=== PATIENT | female | born 1970 | race Caucasian/White ===

== ENCOUNTER 2019-09-15 23:21 | Inpatient (IN) | payer MEDICARE, OTHER ==
[~2019-09-15] VITALS: Ht 167.6 cm; Wt 131.1 kg
--- NOTE | 2019-09-15 23:21 | NUR ---
BIB EMS C/O BIZARRE BEHAVIOR. VERBALLY ABUSIVE, REFUSING TO ANSWER QUESTION, pt to bed 12, placed pt on monitor, -sob, pending md amaya
[2019-09-15] MEDS ORDERED: OLANZAPINE 5 MG TABLET PO ONE (23:30)
[2019-09-15] MEDS ORDERED: OLANZAPINE 10 MG VIAL IM ONE (23:34)
[2019-09-15] MEDS ORDERED: OLANZAPINE 5 MG TABLET ONE (23:39)
[2019-09-15 23:45] LABS: BASOPHILS % (AUTO) 0.4 % (0.0-2.0); EOSINOPHILS % (AUTO) 3.2 % (0.0-6.0); HEMATOCRIT 36 % (33-45); HEMOGLOBIN 11.6 g/dL (11.5-14.8); LYMPHOCYTES # (AUTO) 1.9 /CMM (0.8-4.8); LYMPHOCYTES % (AUTO) 29.5 % (20.0-44.0); MEAN CORPUSCULAR HGB CONC 33 g/dl (31.0-36.0); MEAN CORPUSCULAR VOLUME 90 fL (82-100); MONOCYTES # (AUTO) 0.5 /CMM (0.1-1.30); MONOCYTES % (AUTO) 7.3 % (2.0-12.0); NEUTROPHILS # (AUTO) 3.9 /CMM (1.8-8.9); NEUTROPHILS % (AUTO) 59.6 % (43.0-81.0); PLATELET COUNT (AUTO) 232 /CMM (150-450); RED BLOOD CELL COUNT(AUTO) 3.95 MIL/uL (4.0-5.2); WHITE BLOOD COUNT (AUTO) 6.5 K/uL (4.3-11.0)
[2019-09-15 23:51] LABS: CALCIUM, SERUM 8.6 mg/dL (8.5-10.1); CARBON DIOXIDE 34 mmol/L (21-32); CHLORIDE 107 mmol/L (98-107); CREATININE 0.7 mg/dL (0.6-1.3); GLUCOSE 139 mg/dL (74-106); POTASSIUM 4.3 mmol/L (3.5-5.1); SODIUM SERUM 145 mmol/L (136-145); UREA NITROGEN, BLOOD 17 mg/dL (7-18)
[2019-09-15 23:58] LABS: ACETAMINOPHEN < 2 ug/ml (10-30); ALANINE AMINOTRANSFERASE 18 U/L (12-78); ALBUMIN 3.4 g/dL (3.4-5.0); ALCOHOL, BLOOD < 3 mg/dL (0-0); ALKALINE PHOSPHATASE 73 U/L (46-116); ASPARTATE AMINOTRANSFERASE 11 U/L (15-37); BILIRUBIN,DIRECT 0.1 mg/dL (0.0-0.2); BILIRUBIN,TOTAL 0.4 mg/dL (0.2-1.0); SALICYLATE 1.5 mg/dL (2.8-20.0); TOTAL PROTEIN, SERUM 7.2 g/dL (6.4-8.2)
[2019-09-16] MEDS ORDERED: OLANZAPINE 10 MG VIAL IM ONE
--- NOTE | 2019-09-16 01:03 | NUR ---
Patient is resting comfortably in bed with eyes closed. Easily aroused. VSS
--- NOTE | 2019-09-16 04:00 | NUR ---
Pt sleeping in [place]. no signs of distress noted. pt vital signs stable. will cont to monitor pt.
--- NOTE | 2019-09-16 09:43 | NUR ---
Social service consult requested by Dr. Ashton for bizarre behavior and homelessness. Per MD notes, pt is a 49-year-old female brought in by EMS for bizarre behavior. Patient apparently was verbally abusive. Upon arrival patient was essentially combative and was given Zyprexa IM. WALL CRANE OPERATOR met with the pt bedside. Pt appears unkempt and disheveled. Pt has a wheelchair bedside. Pt is uncooperative and rude. Pt refuses to answer questions at this time. WALL CRANE OPERATOR is unable to assess at this time and will try later.
--- NOTE | 2019-09-16 12:08 | NUR ---
PT ASLEEP IN [facility]. NO ACUTE DISTRESS NOTED. VSS. WILL CONT TO MONITOR.
--- NOTE | 2019-09-16 14:25 | NUR ---
YOSELIN PAREKH AT BEDSIDE FOR EVAL.
--- NOTE | 2019-09-16 14:33 | NUR ---
PT GIVEN FOOD
[2019-09-16 15:17] LABS: APPEARANCE,URINE Clear (CLEAR); BILIRUBIN,URINE Negative (NEGATIVE); BLOOD, URINE Negative Ery/uL (NEGATIVE); COLOR,URINE Yellow (YELLOW); KETONES,URINE Negative (NEGATIVE); LEUKOCYTE ESTERASE ,URINE Negative (NEGATIVE); NITRITE, URINE Negative (NEGATIVE); PH,URINE 5.5 (5.0-8.0); PROTEIN,URINE Negative (NEGATIVE); UGLUCOSE Negative (NEGATIVE); UROBILINOGEN,URINE 0.2 EU/dL (0.2)
--- NOTE | 2019-09-16 16:08 | NUR ---
COOK NIGHT met with the pt again. Pt is alert and oriented x 4. Pt is cooperative. Pt reports that her name is not "Katerina Thorpe" and provided COOK NIGHT with he real name and social security information. Pt reports she has been homeless for the past 10 years since her mother . Pt has been receiving outpatient mental health services through [facility]. Pt reports she uses methamphetamines and cigarettes ocassionally. Pt last used methamphetamines yesterday. Pt reports to have psychiatric diagnosis of Depression. Pt to be evaluated by nurse clinician Mylene for possible psychiatric hospitalization if deemed appropriate.
--- NOTE | 2019-09-16 16:27 | NUR ---
HAT COPYIST GISELLA AT BEDSIDE. PT YELLING AND BEING VERBALLY ABUSIVE.
--- NOTE | 2019-09-16 18:05 | NUR ---
[facility] BED 215.B
--- NOTE | 2019-09-16 19:54 | NUR ---
REPORT GIVEN TO AGUSTIN BOWMAN FOR 850W
--- NOTE | 2019-09-16 20:11 | NUR ---
[facility]
--- NOTE | 2019-09-16 20:20 | NUR ---
GPS ADMISSION NOTE, RECEIVED PATIENT FROM [facility]. PATIENT ARRIVED ON THIS UNIT AT 2020 VIA STRETCHER WITH 2 [employer] ESCORTS. PATIENT ADMITTED ON A 5150 HOLD FOR GD. PER HOLD PATIENT IS DISHEVELED, HER HAIR IS MATTED, SHE IS MISSING TEETH, AND HER CLOTHES ARE DIRTY. PATIENT STARTED YELLING, " GET AWAY FROM ME, I AM NOT TALKING TO YOU! I DON'T KNOW YOU". PATIENT IS LOUD AND VERBALLY ABUSIVE. PATIENT HAS BEEN UNCOOPERATIVE WITH STAFF AND IS UNABLE TO VERBALIZE A PLAN FOR SELF CARE IF DISCHARGED FROM E.. TODAY. THE 5150 WAS REVIEWED AND THE DOCUMENTATION IN THE 5150 HOLD APPEARS TO REFLECT THE PRESENTATION OF THE PATIENT. UPON FACE TO FACE ASSESSMENT PATIENT IS NOTED TO BEING HYPERVERBAL, DISHEVELED, DISORGANIZED, DEMANDING, UNCOOPERATIVE, AND NEEDS REDIRECTION. PATIENT IS CURRENTLY LYING IN BED AWAKE, HAS NO S/S OR COMPLAINTS OF PAIN. PATIENT IS DISPLAYING NO S/S OF APPARENT DISTRESS. PATIENT BREATHING IS UNLABORED WITH EQUAL RISE AND FALL OF THE CHEST. PATIENT IS ALERT AND ORIENTATED X 2 ON ROOM AIR. PATIENT ASSISTED WITH TURING AND REPOSITIONING Q2HR AND PRN FOR COMFORT AND CIRCULATION. PATIENT HAS NO NEEDS AT THIS TIME. PATIENT DENIES SUICIDE IDEATIONS AND HOMICIDAL IDEATIONS AT THIS TIME. PATIENT REFUSED TO SIGNS ANY PAPER WORK AND THINKS THIS IS ALL A MISTAKE. PATIENT ADVISED OF HER HOLD AND PATIENT RIGHTS BOOKLET GIVEN. PATIENT IS UNDER THE PSYCHIATRIC CARE OF DR. SUERO AND THE MEDICAL CARE OF DR ESPINAL. PATIENT BELONGINGS WERE INVENTORIED AND CHECKED FOR CONTRABAND. ALL CONTRABAND REMOVED AND STORED IN PATIENT HALLWAY LOCKER. PATIENT ADVANCED DIRECTIVES PREFERENCE, IMMUNIZATIONS QUESTIONER, NECESSARY PAPERWORK COMPLETED. PATIENT REFUSED SKIN ASSESSMENT. PATIENT ORIENTATED TO ROOM, FLOOR, AND STAFF WITH ALL QUESTIONS ANSWERED. PATIENT EDUCATED ON THE USE OF THE CALL TOMPKINS. PATIENT BED SIDE RAILS ARE UP X 2 FOR SAFETY. PATIENT BED IS LOCKED, LOW AND I WILL CONTINUE TO MONITOR THIS PATIENT Q 15 MIN WITH THE HELP OF STAFF TO MAINTAIN SAFETY.
[2019-09-16] MEDS ORDERED: MAG HYDROX/AL HYDROX/SIMETH 30 ML UDC PO PRN (20:30)
[2019-09-16] MEDS ORDERED: MAGNESIUM HYDROXIDE 30 ML UDC PO PRN (20:30)
[2019-09-16] MEDS ORDERED: TEMAZEPAM 7.5 MG CAPSULE PO PRN (20:30)
[2019-09-16] MEDS ORDERED: BLOOD SUGAR DIAGNOSTIC 1 EACH STRIP IN ONE (22:00)
[2019-09-17] MEDS ORDERED: OLANZAPINE 10 MG VIAL IM ONE ×2 (08:00→12:00)
--- NOTE | 2019-09-17 08:01 | NUR ---
GPS/RN-NOTES NOTED PATIENT WITH AGGRESSIVE BEHAVIOR THROWING WATER AT THE STAFF AND PUSHED BREAKFAST TRAY ON THE FLOOR. DR. SUERO MADE AWARE WITH T.O ORDER OF ZYPREXA 10MG IM X1. NOTED AND CARRIED OUT.
--- NOTE | 2019-09-17 08:17 | NUR ---
RN NOTE-AGITATION/ PT WITH OUTBURST EARLIER. DR SUERO ORDERED ZYPREXA IM. PT CALM DIRECTABLE AT PRESENT. STATING SHE MAY BE . WILL CONTINUE TO MONITOR BEHAVIOR AND NOTIFY DR SUERO.
--- NOTE | 2019-09-17 09:11 | NUR ---
RN NOTE-AGITATION/ PT CALM, RESTING QUIETLY. NO BEHAVIORAL ISSUES. DR SUERO ON UNIT. TO ASSESS PT. ZYPREXA IM HELD FOR NOW.
[2019-09-17] MEDS: BENZTROPINE MESYLATE (1 MG) 1 MG TABLET PO SCH ×2 (10:30→16:39)
--- NOTE | 2019-09-17 10:53 | NUR ---
RN NOTE-AGITATION/ PT SLEEPING QUIETLY. NO DISTRESS. NO BEHAVIORAL ISSUES. ZYPREXA IM HELD.
--- NOTE | 2019-09-17 10:57 | NUR ---
RN NOTE- MED REFUSAL/ PT AWAKENED TO TAKE 1030 COGENTIN DOSE PER MD ORDERS. PT REFUSED RX
--- NOTE | 2019-09-17 12:00 | NUR ---
RN NOTE-AGITATION/ PT REFUSED MEDS. YELLING AND SCREAMING AT STAFF. DR SUERO NOTIFIED. PT STATED PREVIOUSLY THAT "I COULD BE ." TEST HAS BEEN ORDERED EARLIER TODAY. DR MUNOZ. ORDER GIVEN FOR ZYPREXA 10 MG IM ONE TIME. ORDER CARRIED OUT W SECURITY AND STAFF. TOLERATED WELL. DOCUMENTATION COMPLETED.
[2019-09-17] MEDS: risperiDONE 1 MG TABLET PO SCH ×2 (12:56→16:39)
--- NOTE | 2019-09-17 13:05 | NUR ---
RN NOTE-AGITATION FOLLOW UP/ PT CALM QUIET. RESTING IN BED. NO DISTRESS
--- NOTE | 2019-09-17 13:15 | NUR ---
[place] [employer] T[employer] Driver: Aniyah ([phone]) called the SW and stated that the pt is being discharged from [facility] because the pt is uncooperative and resistant. Aniyah stated that the pt is in the process of being referred to the AOT program and stated that the SW will get a call the following week for the AOT individuals to meet with the pt.
--- NOTE | 2019-09-17 14:23 | NUR ---
Initial Discharge Plan: Pt is currently homeless. Pt is currently resistant to care and her discharge plan is unknown. SW will work with the pt and the MD regarding appropriate discharge planning. SW will form a safe and proper discharge plan.
--- NOTE | 2019-09-17 15:51 | NUR ---
GROUP THERAPY: SW encouraged pt to attend group therapy on this present day discussing "suicidal ideation." Pt was asleep and not easily aroused by verbally cues. SW will continue to encourage pt to attend group therapy.
[2019-09-17 16:00] VITALS: BP 156/74
--- NOTE | 2019-09-17 17:00 | NUR ---
RN NOTE- MED REFUSAL/ PT CONTINUES TO BE OPPOSITIONAL, PROFANE AND DEROGATORY TO STAFF AND OTHERS. RESUSES MEDS, SHOWERS AND CARE. DISCUSSED W PATIENT.
--- NOTE | 2019-09-17 20:00 | NUR ---
PT RECEIVED FR MORNING SHIFT, LYING IN BED QUIETLY, DOES'NT ANSWER OR ACKNOWLEDGE THE NURSE IN THE ROOM, PT HAS NO S/S OF PAIN AND DISCOMFORT,CONTINUE TO MONITOR PT FOR MOOD AND BEHAVIOR, CK PT Q15 MIN.
[2019-09-18] MEDS: ACETAMINOPHEN 325 MG TABLET PO PRN (04:29)
--- NOTE | 2019-09-18 07:12 | NUR ---
PT IS REFUSING LAB DRAW, EVEN EXPLAINING TO PT THE NEEDS OF IT ,AND PT GOT ANGRY AND START YELLING.
[2019-09-18] MEDS: BENZTROPINE MESYLATE (1 MG) 1 MG TABLET PO SCH ×2 (09:00→17:00)
[2019-09-18] MEDS: risperiDONE 1 MG TABLET PO SCH ×3 (09:00→17:00)
--- NOTE | 2019-09-18 09:01 | NUR ---
GPS /RN-NOTES PATIENT REFUSED ALL 0900AM MEDICATIONS DESPITE EXPLANATION RISK AND BENEFITS. STATED " I DON'T TAKE MEDICATIONS BECAUSE THAT MEDICATIONS ARE FOR [facility] PEOPLE". OFFERED X3
--- NOTE | 2019-09-18 10:35 | NUR ---
GPS/RN-NOTES PATIENT REFUSED LAB DRAWN DESPITE FEW ATTEMPTS.
--- NOTE | 2019-09-18 17:09 | NUR ---
GPS/RN-NOTES PATIENT CONTINUE REFUSING P.O MEDICATIONS. OFFERED X3.
--- NOTE | 2019-09-18 18:21 | NUR ---
GPS/ RN-NOTES UNABLE TO COLLECT URINE SPECIMEN DUE TO PATIENT WAS UNCOOPERATIVE AND REFUSED TO PROVIDE URINE.WILL ENDORSE TO INCOMING SHIFT FOR FOLLOW UP AND CONTINUITY OF CARE.
[2019-09-18 21:09] VITALS: BP 105/66
[2019-09-19] MEDS: ACETAMINOPHEN 325 MG TABLET PO PRN (01:43)
[2019-09-19] MEDS: BENZTROPINE MESYLATE (1 MG) 1 MG TABLET PO SCH ×2 (08:08→16:55)
[2019-09-19] MEDS: risperiDONE 1 MG TABLET PO SCH ×3 (08:08→16:55)
--- NOTE | 2019-09-19 09:00 | NUR ---
RN NOTE-PT IN ROOM. ARGUING OVER BREAKFAST TRAY. LOUD OPPOSITIONAL. REFUSED AM RX. MD AWARE. CONTINUE TO ASSIST, ENCOURAGE AND MONITOR
--- NOTE | 2019-09-19 10:06 | NUR ---
RN NOTE- RX REFUSAL/ PT REFUSED MORNING RX. TOLD THIS RN TO "GET THE HELL OUT OF MY ROOM!"
--- NOTE | 2019-09-19 13:07 | NUR ---
RN NOTE-RX REFUSAL/ PT REFUSED 1300 RX.
--- NOTE | 2019-09-19 16:55 | NUR ---
RN NOTE- RX REFUSAL/ PT REFUSED 1700 RX
[2019-09-19 20:09] VITALS: BP 112/62
--- NOTE | 2019-09-19 21:00 | NUR ---
GPS RN NOTES: SEEN PATIENT IN THE ROOM, AWAKE,. NO COMPLAINS OF PAIN OR DISCOMFORT THIS TIME OF ASSESSMENT. PATIENT APPEARS UNKEMPT , DISORGANIZED, NOT COMPLYING WITH TREATMENT MOST OF THE TIME. PATIENT DOES NOT HAVE SCHEDULED MEDICATIONS AT NIGHT WITH THE LEAF SIZE PICKER. ENCOURAGED PATIENT TO COMPLY WITH MEDS AND TREATMENT WELL. Q15 MIN CHECKS CONTINUED. WILL CONTINUE TO MONITOR PATIENT FOR MOOD, SAFETY AND BEHAVIOR.
[2019-09-20 08:00] VITALS: BP 112/75
[2019-09-20] MEDS: BENZTROPINE MESYLATE (1 MG) 1 MG TABLET PO SCH ×2 (08:22→16:56)
[2019-09-20] MEDS: risperiDONE 1 MG TABLET PO SCH ×3 (08:23→16:56)
--- NOTE | 2019-09-20 08:23 | NUR ---
RN NOTE- RX REFUSAL/ PT REFUSED AM MEDS.
--- NOTE | 2019-09-20 09:00 | NUR ---
RN NOTE- RECEIVED PT IN ROOM. ASSISTED TO BR. LARGE BM, VOIDED. PT ATE 100% AM, MEAL. REFUSED RX. DENIES SI HI AH VH. CONTINUE TO ASSIST, ENCOURAGE AND MONITOR
--- NOTE | 2019-09-20 09:05 | NUR ---
RN NOTE- PT STATED INDIGESTION. MAALOX 30 CC GIVEN
--- NOTE | 2019-09-20 09:45 | NUR ---
RN NOTE- RX FOLLOW UP/ MAALOX EFFECTIVE
[2019-09-20 16:00] VITALS: BP 134/69
[2019-09-20 20:52] VITALS: BP 134/90
--- NOTE | 2019-09-21 02:00 | NUR ---
GPS RN NOTE PATIENT SLEPT WELL AT NIGHT, WOKE UP ONCE, WANTED TO USE THE RESTROOM, EASILY AGITATED, YELLING AT STAFF, VERBALLY ABUSIVE, NON COMPLAINT. GAVE HER SPACE TO CALM DOWN. OFFERED SNACK/JUICE BUT PT. REFUSED. AFTER SHE CALM DOWN, PT. DID LET THE NURSE ASSIST WITH ADL CARE & WENT BACK TO BED. WILL CONTINUE TO MONITOR FOR SAFETY & BEHAVIOR.
[2019-09-21 08:00] VITALS: BP 118/65
[2019-09-21] MEDS: risperiDONE 1 MG TABLET PO SCH ×3 (08:58→17:54)
[2019-09-21] MEDS: BENZTROPINE MESYLATE (1 MG) 1 MG TABLET PO SCH ×3 (08:58→17:54)
--- NOTE | 2019-09-21 11:30 | NUR ---
Individual Intervention with the Pt: SW met with the pt and informed her that she will be having a hearing that will determine whether or not she should remain in the hospital. Pt stated that she was placed in the hospital under incorrect pretenses and that she would like to be released to her own place of care. Pt stated that she knows how to take care of herself and does not need assistance from anyone.
[2019-09-21] MEDS ORDERED: OLANZAPINE 10 MG VIAL IM PRN (12:00)
--- NOTE | 2019-09-21 15:15 | NUR ---
Group Note: SW encouraged pt to attend group therapy on 09/21/19 at 2pm discussing discharge planning. Pt was asleep and not easily aroused when the SW attempted to wake the pt up. SW will continue to encourage pt to attend group therapy.
[2019-09-21 16:00] VITALS: BP 145/91
[2019-09-21 20:10] VITALS: BP 122/74
[2019-09-22 08:00] VITALS: BP 135/85
[2019-09-22] MEDS: BENZTROPINE MESYLATE (1 MG) 1 MG TABLET PO SCH ×3 (09:00→17:58)
[2019-09-22] MEDS: risperiDONE 1 MG TABLET PO SCH ×3 (09:00→17:58)
--- NOTE | 2019-09-22 13:28 | NUR ---
AOT: SW met with two members from [facility] Assisted Outpatient Treatment Program (AOT) by the names of Dallas ([phone]) and Angel. They stated that they met with the pt and that she agreed to be connected to their services. They stated that they will need to be able to track the pt to meet with her. SW stated that the plan at this moment in time is to send the pt to a SNF. The two members spoke to the pt about the plan and informed the SW to keep them informed on her discharge plan.
--- NOTE | 2019-09-22 15:50 | NUR ---
GROUP NOTE: SW encouraged pt to attend group on this present day discussing "discharge planning." Pt was agitated and screaming that she needed to shower. Pt was on her wheelchair going down the yu yelling and screaming that she needed help. SW attempted to redirect pt but she was agitated and did not engage with SW's verbal cues. SW will continue to assess pts ability to participate in group milieu and level of insight towards her presenting problems.
[2019-09-22 16:00] VITALS: BP 133/76
--- NOTE | 2019-09-22 17:00 | NUR ---
EARLIER IN DAY ATTEMPTED TO REFUSE ORAL MEDS THEN WHEN OFFERED INJECTION DECIDED TO TAKE ORAL MEDS.
--- NOTE | 2019-09-22 18:00 | NUR ---
WHEEL CHAIR BOUND AND YELLING OFF AND ON ALL DAY.
--- NOTE | 2019-09-22 19:30 | NUR ---
GPS RN OPENING NOTES PATIENT ON HER WHEELCHAIR, ALERT AND ORIENTED X 2-3. BREATHING REGULAR AND UNLABORED ON ROOM AIR. NO S/S OF PAIN.DISCOMFORT NOTED AT THIS TIME. WHEELS HERSELF AROUND. REMAINED CALM BUT UNCOOPERATIVE ON NURSING CARE. WILL CONTINUE TO MONITOR FOR SAFETY AND BEHAVIOR.
[2019-09-22 20:34] VITALS: BP 129/77
[2019-09-22 22:00] VITALS: BP 129/77
[2019-09-23] MEDS: ACETAMINOPHEN 325 MG TABLET PO PRN (03:17)
--- NOTE | 2019-09-23 03:30 | NUR ---
GPS RN NOTES COMPLAINED OF 5/10 HEADACHE, TYLENOL 650MG GIVEN BY MOUTH. NON-PHARMACOLOGICAL INTERVENTIONS PROVIDED. WILL CONTINUE TO MONITOR.
--- NOTE | 2019-09-23 06:20 | NUR ---
GPS RN CLOSING NOTES PATIENT IN BED ASLEEP WITH NO S/S OF DISTRESS NOTED. NO S/S OF PAIN/DISCOMFORT OBSERVED. WILL ENDORSE TO MORNING SHIFT FOR CONTINUITY OF CARE.
[2019-09-23 08:00] VITALS: BP_SYST 117; BP_SYST 148; BP_DIAS 66; BP_DIAS 82
[2019-09-23] MEDS: BENZTROPINE MESYLATE (1 MG) 1 MG TABLET PO SCH ×2 (08:07→17:11)
[2019-09-23] MEDS: risperiDONE 1 MG TABLET PO SCH ×2 (08:07→17:12)
--- NOTE | 2019-09-23 15:20 | NUR ---
Group Note: Pt was encouraged to attend group therapy on 09/23/19 at 2pm discussing the topic of social supports. Pt was present in the group but was unable to focus. Pt refused to speak on the topic and continued to draw a portrait of the pt next to her. SW redirected the pt and the pt continued to refuse.
[2019-09-23 16:00] VITALS: BP 112/69
[2019-09-23 20:00] VITALS: BP 109/67
[2019-09-23 20:10] VITALS: BP_SYST 109
[2019-09-24 08:00] VITALS: BP 132/82
[2019-09-24] MEDS: BENZTROPINE MESYLATE (1 MG) 1 MG TABLET PO SCH ×2 (08:39→17:04)
[2019-09-24] MEDS: risperiDONE 1 MG TABLET PO SCH ×2 (08:39→17:04)
--- NOTE | 2019-09-24 13:26 | NUR ---
AOT referral: YOSELIN faxed a referral to [facility] AOT with attn to Prem to the fax number: [phone].
--- NOTE | 2019-09-24 13:27 | NUR ---
SNF Referral: YOSELIN faxed a referral to [facility] with attn to TEODORA and Silvano to the fax number: [phone].
--- NOTE | 2019-09-24 13:28 | NUR ---
SNF Contact: Silvano from [facility] ([phone]) called the SW and stated that the pt was accepted to their facility.
--- NOTE | 2019-09-24 16:54 | NUR ---
gps methodologist: notes informed pt that her doctor ordered a urine test and pt doesn't want to give urine specimen for , pt got easily agitated m/b screaming and yelling at staff.
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
[2019-09-24] MEDS: LORAZEPAM 0.5 MG TABLET PO PRN (17:59)
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
[2019-09-24 20:00] VITALS: BP 117/74
--- NOTE | 2019-09-24 20:53 | NUR ---
PATIENT AWAKE, ALERT AND ORIENTED X 2, DELUSIONAL, NEEDY, PARANOID, EASILY AGITATED, FOCUSED ON FOOD, VERBALLY ABUSIVE, LIMIT SETTINGS DONE, REDIRECTED THE PATIENT, NO SOB, NO ACUTE DISTRESS, BREATHING EVEN AND UNLABORED, NO S/S OF PAIN AND DISCOMFORT, WILL CONITNUE TO MONITOR Q15 MINS FOR SAFETY
[2019-09-25] MEDS: ACETAMINOPHEN 325 MG TABLET PO PRN (04:30)
[2019-09-25 08:00] VITALS: BP 111/71
[2019-09-25] MEDS: BENZTROPINE MESYLATE (1 MG) 1 MG TABLET PO SCH ×2 (09:03→17:14)
[2019-09-25] MEDS: risperiDONE 1 MG TABLET PO SCH ×2 (09:03→17:15)
[2019-09-25] MEDS: LORAZEPAM 0.5 MG TABLET PO PRN ×2 (09:27→23:05)
--- NOTE | 2019-09-25 09:27 | NUR ---
YELLING AND SCREAMING IN DINING R. SITTING IN W/C.JUST TOOK AM MEDS AND NOW GIVEN ATIVAN 0.5 MG PO.
[2019-09-25 16:00] VITALS: BP 134/77
--- NOTE | 2019-09-25 18:17 | NUR ---
QUIETER THIS AFTERNOON AND MORE AGREEABLE.MED COMPLIANT.
[2019-09-25 20:07] VITALS: BP 112/74
[2019-09-26 08:00] VITALS: BP 115/68
[2019-09-26] MEDS: BENZTROPINE MESYLATE (1 MG) 1 MG TABLET PO SCH ×2 (08:28→16:02)
[2019-09-26] MEDS: risperiDONE 1 MG TABLET PO SCH ×2 (08:28→16:02)
--- NOTE | 2019-09-26 09:43 | NUR ---
GPS RN NOTE: PATIENT DELUSIONAL, NEEDY, PARANOID, EASILY AGITATED, VERBALLY ABUSIVE AT TIMES ,NO SOB, NO ACUTE DISTRESS, BREATHING EVEN AND UNLABORED, NO S/S OF PAIN AND DISCOMFORT, COMPLIANT WITH MEDICATIONS . WILL CONTINUE TO MONITOR Q15 MINS FOR SAFETY
[2019-09-26] MEDS: LORAZEPAM 0.5 MG TABLET PO PRN (15:54)
--- NOTE | 2019-09-26 15:54 | NUR ---
GPS RN NOTE: PT YELLING SCREAMING , VERBALLY ABUSIVE ,NO SOB,VSS ATIVAN 0.5 MG PO PRN GIVEN WILL CONTINUE TO MONITOR Q15 MINS FOR SAFETY
[2019-09-26 16:00] VITALS: BP 125/83
[2019-09-26 20:26] VITALS: BP 104/61
--- NOTE | 2019-09-27 04:00 | NUR ---
ms/rn notes Patient complained of back pain, Medicated with tylenol 650 mg po as ordered. will continue plan of care.
[2019-09-27] MEDS: ACETAMINOPHEN 325 MG TABLET PO PRN ×3 (04:05→21:53)
[2019-09-27 08:00] VITALS: BP 132/86
[2019-09-27] MEDS: risperiDONE 1 MG TABLET PO SCH ×2 (08:14→17:04)
[2019-09-27] MEDS: BENZTROPINE MESYLATE (1 MG) 1 MG TABLET PO SCH ×2 (08:14→17:04)
[2019-09-27] MEDS: LORAZEPAM 0.5 MG TABLET PO PRN ×2 (09:42→18:23)
--- NOTE | 2019-09-27 11:35 | NUR ---
Substance Abuse Intervention: SW conducted a substance abuse intervention with the pt due to alcohol use.
--- NOTE | 2019-09-27 12:52 | NUR ---
Individual Intervention with the pt: SW spoke to the pt and informed her that she is going to be discharged to [facility] the following day. SW stated that she will be taken care of there and the pt agreed to go. She stated that she wanted to be discharged today and the SW informed her that it has been set for the following day.
--- NOTE | 2019-09-27 12:53 | NUR ---
AOT Contact: YOSELIN called Dallas ([phone]) from [facility] Assisted Outpatient Treatment Program (AOT) and left a voicemail stating that the pt is going to be discharged to [facility] the following day.
--- NOTE | 2019-09-27 15:06 | NUR ---
AOT Contact: Dallas ([phone]) from [facility] Assisted Outpatient Treatment Program (AOT) called the SW back and the SW informed him that she faxed him the paperwork stating the pts medical conditions and also informed him that the pt is going to be discharged the following day to [facility].
[2019-09-27 16:00] VITALS: BP 131/58
--- NOTE | 2019-09-27 19:15 | NUR ---
RN NOTES: RECEIVED PT IN BED AND IS ASLEEP AT THIS TIME. NO SOB NOTED. NO S/S OF DISTRESS. BED KEPT IN LOW, LOCKED POSITION, AND SIDE RAILS UP. BED ALARM ACTIVATED. WHEELCHAIR NEXT TO BED WELL. WILL CONTINUE TO MONITOR.
[2019-09-27 20:08] VITALS: BP 105/72
--- NOTE | 2019-09-27 21:54 | NUR ---
RN NOTES: PT ASSISTED TO GO IN BED AND WOULD LIKE TO BE ESCORTED TO BED. PT ALSO COMPLAINING OF BILATERAL LEG PAIN AND FEET 3/10 ACHY PAIN. PT WAS ADMINISTERED TYLENOL 650MG PO. WILL CONTINUE TO MONITOR.
--- NOTE | 2019-09-28 07:17 | NUR ---
RN CLOSING NOTES: ENDORSED TO AM NURSE FOR INEZ. PT USING THE RESTROOM AT THIS TIME. NO SOB NOTED. NO S/S OF DISTRESS.
[2019-09-28 08:00] VITALS: BP 132/83
--- NOTE | 2019-09-28 09:30 | NUR ---
pt. in dining rm. on rn arrival.no acute distress
[2019-09-28] MEDS: risperiDONE 1 MG TABLET PO SCH (10:26)
[2019-09-28] MEDS: BENZTROPINE MESYLATE (1 MG) 1 MG TABLET PO SCH (10:27)
--- NOTE | 2019-09-28 13:30 | NUR ---
report on pt. called to [facility] at [facility].all papers signed.belongings to pt. dc order per dr. shahid.ambulance here and report to drivers.refused final skin check.pt. denies suicidal ideation or homicidal ideation.transferred to facility via ambulance.
--- NOTE | 2019-09-28 13:52 | NUR ---
Discharge Note: Pt was discharged to [facility] (SNF) located at [address] [place] [address]; . Pt was transported via [facility] at 1PM. Pt does not have anyone to contact regarding this discharge. SW informed Dallas ([phone]) from [facility] Assisted Outpatient Treatment Program (AOT) and he stated that he would follow up with the pt. Upon discharge, the pt appeared to be in a euthymic mood and presented with a calm affect. Pt appeared to be alert and oriented x4 (time, place, self and situation). Pt denied both suicidal and homicidal ideation as well as auditory and visual hallucinations. Pt was provided with homeless resources that include shelters, food wade, mental health and physical health clinics, substance abuse referrals, and smoking cessation referrals. Pt signed the homeless checklist. Pt will continue to be under the care of her psychiatrist, Dr. Singh, located at [address] [facility]. [address] [place] [address]; and x ray service technician, Dr. Baer, located at [address] [place] [address]; . Pt will continue to address her substance abuse with her aftercare team.
== END 2019-09-28 13:45 | DRG 885 ==
LOC: ER 23:23 → GPS 09-16 19:29 → EDBD 09-16 19:29
PROVIDERS: ADMIT Psychiatry & Neurology Psychosomatic Medicine; ATTEND Internal Medicine
DX: F31.9 Bipolar disorder, unspecified (principal); Z68.42 Body mass index [BMI] 45.0-49.9, adult; F29 Unspecified psychosis not due to a substance or known physiological condition; F41.9 Anxiety disorder, unspecified; E66.9 Obesity, unspecified; F15.10 Other stimulant abuse, uncomplicated; Z59.0 Homelessness; Z91.19 Patient's noncompliance with other medical treatment and regimen
CPT/HCPCS: 36415; 80048-TC; 80076-TC; 80305; 81000-TC; 84703-TC; 85025-TC; 87081-TC; 97530-TC; G0480; J3490